=== PATIENT | female | born 1990 | race Caucasian/White ===

== ENCOUNTER 2023-01-05 14:23 | Outpatient (REF) | payer OTHER, SELFPAY | END 2023-01-05 14:24 | disposition home or self-care (01) | LOC: HO.SH 14:23 | PROVIDERS: Visit Provider Internal Medicine | DX: Z01.118 Encounter for examination of ears and hearing with other abnormal findings (principal); H91.93 Unspecified hearing loss, bilateral | CPT/HCPCS: 92557; 92567 ==

== ENCOUNTER 2023-10-14 14:31 | Outpatient (REF) | payer OTHER, SELFPAY ==
--- NOTE | 2023-11-02 10:09 | MHC.AU.HA1 ---
Hearing Aid Evaluation Date of Visit: 10/14/23 Rn Imcu Used: Historical Information: Description of Hearing: Mild to moderate mixed hearing loss Summary: Marilyn returned for a hearing aid evaluation after having her hearing tested and receiving medical clearance from ENT 10/05/23. She states Dr Pretty did not recommend surgical intervention of her perforations. She previously wore slim tube BTE hearing aids dispensed by [employer], which were reportedly lost about 3 years ago. Discussed updated hearing aid options, selected Real 2 miniBTE Rs with domes (will get molds if necessary but she would prefer to try domes) in pink. Will submit to insurance for prior authorization. Hearing Aid Prescription: Based on the individual?s shared listening needs, communication environments, dexterity, desire for connectivity, and personal preferences, the following prescription for amplification has been made: Right ear: Make, Model, Color: Oticon miniBTE R, pink Battery Size: Rechargeable Anthropology Professor/Slim Tube: 2 Type of Earmold/Dome/CShell/SlimTip: 6mm dbl molina Left ear: Left ear prescription to be same as Right Hearing Aid above: Make, Model, Color: Oticon miniBTE R, pink Battery Size: Rechargeable Anthropology Professor/Slim Tube: 2 Type of Earmold/Dome/CShell/SlimTip: 6mm dbl tracy Plan of Care: Patient wishes to purchase hearing aids as prescribed Action Taken/Action Needed: Prior authorization to be requested Hearing Instrument Fitting to be scheduled when materials arrive Primary Diagnosis: H90.6 Mixed Hearing Loss, Bilateral Signature: Provider: Shikha Niño, [facility]
== END 2023-10-14 14:32 | disposition home or self-care (01) ==
LOC: HO.HAP 14:31
PROVIDERS: Visit Provider Internal Medicine
DX: Z46.1 Encounter for fitting and adjustment of hearing aid (principal); H90.6 Mixed conductive and sensorineural hearing loss, bilateral
CPT/HCPCS: 92591

== ENCOUNTER 2023-12-07 13:16 | Outpatient (REF) | payer OTHER, SELFPAY ==
--- NOTE | 2023-12-07 14:26 | MHC.AU.HA2 ---
Hearing Instrument Fitting- Adult- Binaural Date of Visit: 12/07/23 Hearing Instruments Dispensed: Right Ear: Make, Model, Color, Serial Number: Oticon Real 2 miniBTE-R SN: [id number] Color: [place] Clinical Data Specialist Repair Warranty: 12/04/2026 Clinical Data Specialist Loss and Damage Warranty: 12/04/2026 [facility] Service Plan: 12/06/2024 Battery Size: Rechargeable Industrial Technology Teacher/Slim Tube: 1 slim tube Earmold/Dome/CShell/SlimTip: 6mm double molina dome with retention tail Left Ear: Make, Model, Color, Serial Number: Oticon Real 2 miniBTE-R SN: [id number] Color: [place] Clinical Data Specialist Repair Warranty: 12/04/2026 Clinical Data Specialist Loss and Damage Warranty: 12/04/2026 [facility] Service Plan: 12/06/2024 Battery Size: Rechargeable Industrial Technology Teacher/Slim Tube: 1 slim tube Earmold/Dome/CShell/SlimTip: 6mm double molina dome with retention tail Accessories/Assistive Technology: Investigations Manager SN: [id number] Summary of Fitting: Ran feedback analyzer and real ear measures. Good match to target although notch noted .75-1.5 kHz. Decreased to AM1 at Marilyn's request due to echo. Reviewed care and use including rechargeability, manually turning on/off, VC use, and changing dome. As a previous hearing aid user, Marilyn was familiar with general maintenance. Some difficulty inserting; however, better with practice in office. Paired to cell phone. Explained importance of daily, consistent use in reacclimating to hearing aids as it has been a while since Marilyn has used them. Recommendations: A hearing instrument follow-up was scheduled. Diagnosis Code(s): Primary Diagnosis: H90.0 Conductive Hearing Loss, Bilateral Signature: Provider: Thania Mcpherson, [facility]
== END 2023-12-07 13:17 | disposition home or self-care (01) ==
LOC: HO.HAP 13:16
PROVIDERS: PCP Nurse Practitioner Family; Visit Provider Otolaryngology
DX: Z46.1 Encounter for fitting and adjustment of hearing aid (principal); H90.0 Conductive hearing loss, bilateral
CPT/HCPCS: V5011; V5020; V5160; V5261

== ENCOUNTER 2024-10-10 13:58 | Outpatient (REF) | payer MEDICAID, SELFPAY | END 2024-10-10 13:59 | disposition home or self-care (01) | LOC: HO.HAP 13:58 | PROVIDERS: Visit Provider Nurse Practitioner Family | DX: Z13.89 Encounter for screening for other disorder (principal) ==